=== PATIENT | male | born 1940 | race Caucasian/White ===

== ENCOUNTER 2017-01-12 07:32 | Day surgery (SDC) | payer OTHER, BC ==
[~2017-01-12] VITALS: Ht 180.3 cm; Wt 81.6 kg
[~2017-01-12 07:32] MED LIST: ALDACTONE25 MG PO; ALLOPURINOL100 MG PO; CRESTOR5 MG PO; FLOMAX0.4 MG PO; PLAQUENIL200 MG PO; PROSCAR5 MG PO; RAYOS2 MG PO; TOPROL XL50 MG PO; XARELTO20 MG PO; ZOLOFT50 MG PO
[2017-01-12 08:09] VITALS: BP 130/86
[2017-01-12 08:19] LABS: HEMATOCRIT 42.7 % (38.0-50.0); MCH 30.9 PG (29.0-34.0); MCHC 33.3 G/DL (30.0-36.0); MCV 92.8 FL (86-99); MEAN PLAT.VOLUME 10.6 uM^3 (9.0-12.4); PLATELET COUNT 161 K/uL (156-360); RBC DIS.WIDTH-CV 12.2 % (11.8-14.6); RBC DIS.WIDTH-SD 41.7 % (39-53); WHITE BLOOD COUNT 6.3 K/uL (4.1-10.2)
[2017-01-12 08:24] LABS: PROTHROMBIN TIME 11.3 SEC (10.2-12.9)
[2017-01-12 08:27] LABS: CHLORIDE 107 mEq/L (99-109); POTASSIUM 3.8 mEq/L (3.7-5.4); PTT 30.8 SEC (25-37)
[2017-01-12 08:28] LABS: SODIUM 142 mEq/L (136-147)
[2017-01-12 08:29] LABS: GLUCOSE 89 mg/dL (70-99)
[2017-01-12 08:31] LABS: ANION GAP 6 MEQ/L (2-14)
[2017-01-12 08:33] LABS: GFR ESTIMATE (CALCULATED) > 59 mL/min/
[2017-01-12 08:34] LABS: UREA NITROGEN (BUN) 17 mg/dL (9-23)
[2017-01-12] MEDS ORDERED: OXYCODONE HCL5 MG PO (11:12)
[2017-01-12] MEDS ORDERED: HYDROCODON-ACE1 EA11 PO (11:12)
[2017-01-12 12:31] VITALS: BP 118/79
[2017-01-12 13:59] VITALS: BP 126/76
[2017-01-12 14:50] VITALS: BP 118/70
== END 2017-01-12 14:45 | disposition home or self-care (01) ==
LOC: SDC 07:32
PROVIDERS: Surgery
PROC: 0YU50JZ Supplement Right Inguinal Region with Synthetic Substitute, Open Approach (ICD-10-PCS; principal; 2017-01-12)
DX: K40.90 Unilateral inguinal hernia, without obstruction or gangrene, not specified as recurrent (principal); I11.0 Hypertensive heart disease with heart failure; I50.9 Heart failure, unspecified; I25.10 Atherosclerotic heart disease of native coronary artery without angina pectoris; E78.2 Mixed hyperlipidemia; Z86.73 Personal history of transient ischemic attack (TIA), and cerebral infarction without residual deficits; G30.9 Alzheimer's disease, unspecified; F02.80 Dementia in other diseases classified elsewhere, unspecified severity, without behavioral disturbance, psychotic disturbance, mood disturbance, and anxiety; I48.1 Persistent atrial fibrillation; Z79.01 Long term (current) use of anticoagulants; Z79.899 Other long term (current) drug therapy
CPT/HCPCS: 80048; 85027; 85610; 85730; 88302; C1781; J1885; J2405; J3010; S0020